=== PATIENT | male | born 1980 | race Caucasian/White ===

== ENCOUNTER 2017-06-03 10:27 | Emergency (ER) | payer MEDICAID, OTHER ==
[~2017-06-03] VITALS: Ht 167.6 cm; Wt 96.0 kg
[2017-06-03 10:29] VITALS: Ht 167.6 cm; Wt 96.0 kg
[2017-06-03] MEDS ORDERED: OMEP20CA16 PO (11:43)
[2017-06-03] MEDS ORDERED: FLUT9.9S NASAL (11:46)
--- NOTE | 2017-06-03 11:55 | ERD ---
ER Documentation Chief Complaint Chief Complaint sore throat x 2 months HPI 36-year-old male is complaining of throat irritation 2 month. Patient described the irritation is feeling the throat is dry. He is able to swallow without difficulty. Patient reports phlegm in the throat in the morning. He was seen by PCP, and was told that he has throat infection. He was given penicillin, Bactrim DS, Cipro, and diclofenac. Patient stated that it had not helped. Patient reports occasional acid reflux. Denies throat pain. Denies fever or chills. Denies cough. ROS All systems reviewed and are negative except as per history of present illness. Medications Home Meds Active Scripts Fluticasone Propionate (Flonase Allergy Relief) 9.9 Ml [place].susp, 1 SPRAY NASAL DAILY, #1 BOTTLE TO EACH NOSTRIL Prov:MALA PATTON. 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 06/03/17 Allergies Allergies: Coded Allergies: No Known Allergy (Unverified , 12/20/13) PMhx/Soc History of Surgery: No Anesthesia Reaction: No Hx Neurological Disorder: No Hx Respiratory Disorders: No Hx Cardiac Disorders: No Hx Psychiatric Problems: No Hx Miscellaneous Medical Probl: Yes (cholesterol) Hx Alcohol Use: No Hx Substance Use: No Hx Tobacco Use: No Smoking Status: Never smoker Physical Exam Vitals Vital Signs Date Time Temp Pulse Resp B/P Pulse Ox O2 Delivery O2 Flow Rate FiO2 06/03/17 10:29 99.6 124 18 172/100 97 Physical Exam General: Well-developed, morbidly obese, conscious and coherent, in no distress Skin: Warm and dry without rash, good texture and turgor Head: Normocephalic without evidence of trauma Eyes: Sclera and conjunctivae normal; pupils equal, round, and reactive to light; extraocular movements are intact Ears: Canals are patent. Tympanic membranes are clear Nose/Face: Boggy and swollen. Mouth/throat: Mucous membranes are moist. Posterior pharynx clear without erythema or exudates, postnasal drip noted. Neck: Supple without meningismus or adenopathy. Carotids are equal. Trachea midline. No bruits or JVD Chest: Normal AP diameter. Good expansion without retractions. Nontender. Lungs are clear to auscultate bilaterally with good tidal volume Heart: Regular rate and rhythm. No murmur, rub, or gallops heard Abdomen: Soft and nontender without masses, guarding, or rebound. Bowel sounds are active. No hepatosplenomegaly Back: Without spinal or CVA tenderness Pelvis: Nontender to palpation and stable to compression Extremities: Full range of motion. Good strength bilaterally. No clubbing, cyanosis, or edema. Peripheral pulses are intact. Sensation intact Neuro: Alert and oriented 4, GCS 15. Cranial nerves grossly intact. Motor and sensory exams nonfocal. Moves all extremities. Speech clear. Gait normal Procedures/MDM Well-appearing, morbidly obese 36-year-old male present ED with throat irritation 2 month. There is no sign of pharyngitis on exam. Based on patient 's history exam findings, I think the likely cause of patient's throat irritation is due to postnasal drip and acid reflux. Low suspicion for tumor. Patient appears well, stable for discharge and outpatient management. Medical decision making shared with patient and family. Education provided to patient and family. Patient and family expressed understanding of the plan. Medications on discharge: Omeprazole, Flonase. Follow-up: Primary care provider in 2-3 days or return to ED if worse. Disclaimer: Inadvertent spelling and grammatical errors are likely due to EHR/ dictation software use and do not reflect on the overall quality of patient care. Also, please note that the electronic time recorded on this note does not necessarily reflect the actual time of the patient encounter. Departure Diagnosis: Primary Impression: Dry throat Additional Impression: Post-nasal drip Condition: Stable Patient Instructions: Tips to Control Acid Reflux, Allergic Rhinitis Ref[facility]: [facility] Usted se barton hecho un examen mdico de control que le indica que no est en allen condicin que requiera tratamiento urgente en el Departamento de Emergencia. Un estudio ms profundo y el tratamiento de turner condicin pueden esperar sin ningn riesgo hasta que usted sea atendida/o en el consultorio de turner mdico o allen cl cristina. Es responsabilidad suya arreglar allen fide para el seguimiento del trina. MANEJO DE CONDICIONES NO URGENTES EN EL FUTURO 1) Si usted tiene un mdico de atencin primaria: Usted debera llamar a turner mdico de atencin primaria antes de venir al departamento de emergencia. Despus de las horas de consultorio, turner doctor o turner asociado/a est disponible por telfono. El mdico o enfermero de jhonny en el servicio telefnico puede asesorarle por bri medio para atender el problema, o trina contrario se puede programar allen fide. 2) Si usted no tiene un mdico de atencin primaria: Llame al mdico o clnica de referencia que aparece abajo taisha las horas de consultorio para hacer allen fide para que le vean. CLINICAS: [place] [id number] [phone] [facility] [phone] [facility] [phone] [address] [facility] [phone] [address] [place] [address] [phone] [facility]. [phone] [facility] [facility] () Usted se barton hecho un examen mdico de control que le indica que no est en allen condicin que requiera tratamiento urgente en el Departamento de Emergencia. Un estudio ms profundo y el tratamiento de turner condicin pueden esperar sin ningn riesgo hasta que usted sea atendida/o en el consultorio de turner mdico o allen cl cristina. Es responsabilidad suya arreglar allen fide para el seguimiento del trina. MANEJO DE CONDICIONES NO URGENTES EN EL FUTURO 1) Si usted tiene un mdico de atencin primaria: Usted debera llamar a turner mdico de atencin primaria antes de venir al departamento de emergencia. Despus de las horas de consultorio, turner doctor o turner asociado/a est disponible por telfono. El mdico o enfermero de jhonny en el servicio telefnico puede asesorarle por bri medio para atender el problema, o trina contrario se puede programar allen fide. 2) Si usted no tiene un mdico de atencin primaria: Llame al mdico o condado institucions de referencia que aparece abajo taisha las horas de consultorio para hacer allen fide para que le vean. SI USTED NO PUEDE PAGAR PARA MAURO UN MEDICO puede ir a: [facility] [address] [place], [place] [id number] [place] [address] [address] [place] [address] [facility] [address] [place] [address] [facility] [address] [place] [place], [place] [id number] Additional Instructions: Llame al doctor MAANA y tatyana allen FIDE PARA DENTRO DE 2-3 LINK.Dgale a la secretaria que nosotros le instruimos hacer esta fide.Avise o llame si turner condicin se empeora antes de la fide. Regresa aqui si peor o no mejor. MALA PATTON. KYLEE Jun 03, 2017 11:55
[2017-06-03 12:10] VITALS: BP 150/90; PULSE 103; RESP 17
== END 2017-06-03 12:02 | disposition home or self-care (01) ==
LOC: FTE 10:27
DX: R68.2 Dry mouth, unspecified (principal); R09.82 Postnasal drip
CPT/HCPCS: 99283